=== PATIENT | female | born 1985 | race Caucasian/White ===

== ENCOUNTER 2018-06-02 12:30 | Inpatient (IN) | payer OTHER ==
[~2018-06-02] VITALS: Ht 157.5 cm; Wt 67.1 kg
[2018-06-15] MEDS ORDERED: PRENATAL TABLE1 EAC1 PO (06:25)
[2018-06-17] MEDS ORDERED: CODE1TAB37 PO (09:07)
== END 2018-06-17 14:17 | disposition home or self-care (01) | DRG 807 ==
LOC: LDR 06-15 06:23 → OB/GYN 06-15 23:17
PROC: 10E0XZZ Delivery of Products of Conception, External Approach (ICD-10-PCS; principal; 2018-06-15)
PROC: 0UQGXZZ Repair Vagina, External Approach (ICD-10-PCS; 2018-06-15)
PROC: 3E033VJ Introduction of Other Hormone into Peripheral Vein, Percutaneous Approach (ICD-10-PCS; 2018-06-15)
PROC: 4A033R1 Measurement of Arterial Saturation, Peripheral, Percutaneous Approach (ICD-10-PCS; 2018-06-15)
PROC: 4A1HXCZ Monitoring of Products of Conception, Cardiac Rate, External Approach (ICD-10-PCS; 2018-06-15)
DX: O71.4 Obstetric high vaginal laceration alone (principal); Z37.0 Single live birth; Z3A.38 38 weeks gestation of pregnancy